=== PATIENT | female | born 1985 | race Caucasian/White ===

== ENCOUNTER 2024-02-26 19:08 | Emergency (ER) | payer SELFPAY ==
[~2024-02-26] VITALS: Ht 167.6 cm; Wt 96.0 kg
[2024-02-26 19:22] VITALS: TEMP 36.66960; O2SAT 98
[2024-02-26 19:23] VITALS: BP 152/98; PULSE 105; RESP 16; TEMP 98.7; O2SAT 98
[2024-02-26 21:05] LABS: HCG SCREEN NEGATIVE
[2024-02-26] MEDS ORDERED: LIDO700A15 TP (21:50)
[2024-02-26] MEDS ORDERED: ACET-2708 MT (21:50)
[2024-02-26] MEDS ORDERED: CYCL5TAB MT (21:50)
[2024-02-26] MEDS: CYCLOBENZAPRINE 10MG TABLET PO ONE (22:10)
[2024-02-26] MEDS: KETOROLAC 30MG/ML VIAL IM ONE (22:10)
== END 2024-02-27 02:13 | disposition home or self-care (01) ==
LOC: ER 20:13
DX: M54.50 Low back pain, unspecified (principal); R51.9 Headache, unspecified; M54.2 Cervicalgia
CPT/HCPCS: 84703; 71045; 72100; 73030; 73560; 96372; 99284; J1885; Z7610

== ENCOUNTER 2024-08-16 07:34 | Emergency (ER) | payer MEDICAID, OTHER ==
[~2024-08-16] VITALS: Ht 154.9 cm; Wt 102.1 kg
[~2024-08-16 07:34] MED LIST: ACET-2708 MT; CYCL5TAB3 MT; LIDO700A15 TP
[2024-08-16 07:59] VITALS: O2SAT 100
[2024-08-16 09:26] LABS: BASOPHILS % 1.2 % (0.0-2.0); EOSINOPHILS % 4.2 % (0.0-5.0); HEMATOCRIT. 35.8 % (36.0-48.0); HEMOGLOBIN. 12.2 g/dL (12.0-16.0); LYMPHOCYTES % 15.2 % (20.0-50.0); MEAN CORPUSCULAR HEMOGLOBIN 28.8 pg (28.0-32.0); MEAN CORPUSCULAR HGB CONC 34.1 g/dL (31.0-37.0); MEAN CORPUSCULAR VOLUME 84.5 fL (81.0-99.0); MEAN PLATELET VOLUME 8.2 fl (7.4-10.4); MONOCYTES % 4.1 % (2.0-8.0); NEUTROPHILS % 75.3 % (40.0-76.0); PLATELET 286 x1000/uL (130-400); RED BLOOD CELL COUNT 4.23 mill/uL (4.2-5.4); RED CELL DISTRIBUTION WIDTH 13.8 % (11.6-14.6); WHITE BLOOD COUNT 11.2 x1000/uL (4.5-11.0)
[2024-08-16 09:31] LABS: CHLORIDE 105 mEq/L (98-107); POTASSIUM 4.6 mEq/L (3.5-5.1); SODIUM 140 mEq/L (136-145)
[2024-08-16 09:32] LABS: CALCIUM 9.4 mg/dL (8.7-10.4); CARBON DIOXIDE 28 mEq/L (21-32)
[2024-08-16 09:36] LABS: HCG SCREEN NEGATIVE
[2024-08-16 09:37] LABS: CREATININE 0.7 mg/dL (0.6-1.0); GLUCOSE 135 mg/dL (70-105); UREA NITROGEN BLOOD 14 mg/dL (9-23)
[2024-08-16 09:39] LABS: ALANINE AMINOTRANSFERASE 24 IU/L (10-49); ALBUMIN 4.2 g/dL (3.2-4.8); ASPARTATE AMINOTRANSFERASE 31 IU/L (<34); BILIRUBIN DIRECT 0.2 mg/dL (<=3.0); BILIRUBIN TOTAL 0.7 mg/dL (0.1-1.0); PROTEIN TOTAL 7.4 g/dL (6.0-8.3)
[2024-08-16] MEDS: KETOROLAC 30MG/ML VIAL IM STA (09:42)
[2024-08-16] MEDS: ACETAMINOPHEN 325MG TABLET PO STA (09:44)
[2024-08-16] MEDS: ONDANSETRON 4MG ODT PO STA (09:45)
[2024-08-16] MEDS: LIDOCAINE 5% PATCH TOP SCH (09:45)
[2024-08-16 09:46] VITALS: BP 131/75; PULSE 85; RESP 16; TEMP 36.7; O2SAT 100
[2024-08-16 09:52] LABS: CLARITY URINE CLOUDY (CLEAR); COLOR URINE YELLOW (YELLOW); GLUCOSE URINE NEGATIVE (NEGATIVE); KETONES URINE NEGATIVE (NEGATIVE); LEUKOCYTE ESTERASE URINE TRACE (NEGATIVE); NITRITE URINE NEGATIVE (NEGATIVE); OCCULT BLOOD URINE 1+ (NEGATIVE); PROTEIN URINE NEGATIVE (NEGATIVE); SPECIFIC GRAVITY URINE 1.028 (1.005-1.030); UROBILINOGEN URINE 0.2 E.U./dL (0.2-1.0)
[2024-08-16 10:05] LABS: BACTERIA URINE 4+; SQUAMOUS EPITHELIAL CELL URINE 3+ /lpf (RARE/1+); YEAST URINE NONE SEEN
[2024-08-16] MEDS ORDERED: SULF1TAB48 MT (11:01)
[2024-08-16] MEDS ORDERED: ONDA-239 PO (11:01)
== END 2024-08-16 11:24 | disposition home or self-care (01) ==
LOC: ER 07:50
DX: R10.11 Right upper quadrant pain (principal); N39.0 Urinary tract infection, site not specified; K80.70 Calculus of gallbladder and bile duct without cholecystitis without obstruction; Z98.890 Other specified postprocedural states
CPT/HCPCS: 99285; 76705; 80076; 80048; 81003; 84703; 85025; 36415; 96372; J1885; Q0162

== ENCOUNTER 2025-04-25 18:46 | Emergency (ER) | payer MEDICAID ==
[~2025-04-25] VITALS: Ht 157.5 cm; Wt 115.1 kg
[~2025-04-25 18:46] MED LIST changes: +LIDO-53 TP; -LIDO700A15 TP; +ONDA-239 PO; +SULF1TAB48 MT
[2025-04-25 18:55] VITALS: O2SAT 95
[2025-04-25 21:06] LABS: INFLUENZA TYPE A Presumptive Negative (Pres. Neg.); INFLUENZA TYPE B Presumptive Negative (Pres. Neg.)
[2025-04-25] MEDS ORDERED: IBUP-1455 MT (21:50)
[2025-04-25] MEDS ORDERED: BENZ1LOZ73 MT (21:50)
[2025-04-25 22:34] VITALS: BP 146/97; PULSE 84; RESP 20; TEMP 36.6; O2SAT 99
== END 2025-04-25 22:40 | disposition home or self-care (01) ==
LOC: ER 18:46
DX: J06.9 Acute upper respiratory infection, unspecified (principal); Z20.822 Contact with and (suspected) exposure to COVID-19
CPT/HCPCS: 87426; 87804; 99283